=== PATIENT | male | born 1995 | race Caucasian/White ===

== ENCOUNTER 2021-03-08 19:26 | Emergency (ER) | payer MEDICAID ==
[~2021-03-08] VITALS: Ht 170.2 cm; Wt 77.1 kg
[2021-03-08 20:10] VITALS: BP 145/79
[2021-03-08] MEDS ORDERED: AMOX-430 PO (21:28)
[2021-03-08] MEDS ORDERED: AMOX/CLAVULANATE 875 MG TABLET ONE (21:29)
[2021-03-08] MEDS ORDERED: AMOX/CLAVULANATE 875 MG TABLET PO ONE (21:30)
[2021-03-08] MEDS ORDERED: TDAP [DIPH/PERTUSSIS/TET] 0.5 ML VIAL IM ONE ×2 (21:30)
== END 2021-03-08 21:50 | disposition home or self-care (01) ==
LOC: ER 19:32
DX: S01.81XA Laceration without foreign body of other part of head, initial encounter (principal); W54.0XXA Bitten by dog, initial encounter; Y93.89 Activity, other specified; Y92.89 Other specified places as the place of occurrence of the external cause; Y99.8 Other external cause status
CPT/HCPCS: 90715